=== PATIENT | male | born 1945 | race Caucasian/White ===

== ENCOUNTER 2017-08-09 16:29 | Emergency (ER) | payer OTHER ==
[2017-08-09] MEDS ORDERED: methylPREDNISolone Sod Succ/PF 125 MG/2 ML VIAL ONE (17:41)
[2017-08-09] MEDS ORDERED: Water For Inject, Bacteriostat 30 ML ONE (17:41)
[2017-08-09] MEDS ORDERED: Famotidine 40 MG/4 ML VIAL SLOW IVP SCH (18:00)
== END 2017-08-09 19:30 | disposition home or self-care (01) ==
LOC: ERS 16:29
DX: T63.441A Toxic effect of venom of bees, accidental (unintentional), initial encounter (principal); M19.90 Unspecified osteoarthritis, unspecified site; F17.220 Nicotine dependence, chewing tobacco, uncomplicated; Z79.1 Long term (current) use of non-steroidal anti-inflammatories (NSAID)
CPT/HCPCS: 93005; 96374; 96375; J2930